=== PATIENT | male | born 1965 | race Caucasian/White ===

== ENCOUNTER → 2016-09-09 | Outpatient (CLI) | payer OTHER ==
[~2016-09-09] MED LIST: APIX5TAB PO; CLOB30CR TOP; HYDR-33 PO; IBP800T PO
--- NOTE | 2016-09-09 14:12 | Diagnostic Imaging Report ---
INDICATION: Right-sided chest pain following injury. FINDINGS: Right lung is clear. There is no evidence of contusion, aspiration, effusion, or pneumothorax. There is no free air beneath the right hemidiaphragm. No rib destruction or fracture deformity. No acute periosteal reaction. IMPRESSION: Unremarkable right rib series. Dictated by: Dictated on workstation # [id number]
== END ==
LOC: RAD 11:02
PROVIDERS: ATTEND Nurse Practitioner Family
DX: R07.81 Pleurodynia (principal)
CPT/HCPCS: 71100